=== PATIENT | male | born 1960 | race Hispanic/Latino ===

== ENCOUNTER 2016-06-24 21:16 | Emergency (ER) | payer SELFPAY ==
[2016-06-24 21:24] VITALS: BP 156/108
[2016-06-24 22:04] LABS: Basophils % (Auto) 0.7 % (0.0-1.8); Eosinophils % (Auto) 1.4 % (0.0-4.3); Hematocrit 54.2 % (35.5-45.6); Hemoglobin 18.4 gm/dl (11.8-15.2); Mean Corpuscular HGB Conc 34 % (32-34); Mean Corpuscular Hemoglobin 31 pg (28-32); Mean Corpuscular Volume 91 fl (84-94); Platelet Count 241 K/mm3 (140-440); Red Blood Count 5.94 M/mm3 (3.65-5.03); Red Cell Distribution Width 14.2 % (13.2-15.2); White Blood Count 7.4 K/mm3 (4.5-11.0)
[2016-06-24 22:20] LABS: BUN/Creatinine Ratio 18.18; Blood Urea Nitrogen 20 mg/dL (9-20); Calcium 9.3 mg/dL (8.4-10.2); Carbon Dioxide 23 mmol/L (22-30); Chloride 97.6 mmol/L (98-107); Glucose 131 mg/dL (75-100); Sodium 138 mmol/L (137-145)
[2016-06-24 22:21] LABS: Anion Gap 21 mmol/L
--- NOTE | 2016-06-26 05:09 | ED Elopement Review ---
ED Pt Elopement review - Results review Lab results: Laboratory Tests 06/24/16 06/24/16 21:47 21:47 WBC 7.4 RBC 5.94 H Hgb 18.4 H Hct 54.2 H MCV 91 MCH 31 MCHC 34 RDW 14.2 Plt Count 241 Lymph % (Auto) 22.1 [place] % (Auto) 8.3 H Eos % (Auto) 1.4 Baso % (Auto) 0.7 Lymph # 1.6 [place] # 0.6 Eos # 0.1 Baso # 0.1 Seg Neutrophils % 67.5 Seg Neutrophils # 5.0 Sodium 138 Potassium 4.0 Chloride 97.6 L Carbon Dioxide 23 Anion Gap 21 BUN 20 Creatinine 1.1 Estimated GFR > 60 BUN/Creatinine Ratio 18.18 Glucose 131 H Calcium 9.3 Troponin T < 0.010 - Call Back decision Pt Call Back Decision: No action required
== END 2016-06-25 02:23 | disposition left against medical advice (07) ==
LOC: ED 21:16
DX: R20.0 Anesthesia of skin (principal); Z53.21 Procedure and treatment not carried out due to patient leaving prior to being seen by health care provider
CPT/HCPCS: 36415; 80048; 84484; 85025; 93005; 93010

== ENCOUNTER 2020-02-19 15:57 | Emergency (ER) | payer SELFPAY ==
[2020-02-19 16:35] VITALS: BP 129/81
--- NOTE | 2020-02-19 16:35 | Emergency Department Report ---
Blank Doc - Documentation Documentation: This is a 59-year-old male that presents with bilateral arm tingling and sensa tion. This initial assessment/diagnostic orders/clinical plan/treatment(s) is/are subject to change based on patient's health status, clinical progression and re- assessment by fellow clinical providers in the ED. Further treatment and workup at subsequent clinical providers discretion. Patient/guardians urged not to elope from the ED as their condition may be serious if not clinically assessed and managed. Initial orders include: 1- Patient sent to MAIN ED for further evaluation and treatment 2- labs
== END 2020-02-19 19:00 | disposition left against medical advice (07) ==
LOC: ED 15:57
DX: M79.602 Pain in left arm (principal); Z53.21 Procedure and treatment not carried out due to patient leaving prior to being seen by health care provider